=== PATIENT | female | born 1955 | race Caucasian/White ===

== ENCOUNTER 2017-03-24 08:12 | Day surgery (SDC) | payer MEDICARE, OTHER ==
[~2017-03-24 08:12] MED LIST: CEFAZOLIN 2 GM/50 ML (PMX) 50 ML IVPB; LIDOCAINE 2% (SDV) 5 ML INJ; ONDANSETRON 4 MG INJ; SOD CHLORIDE 0.9% 1,000 ML IV
[2017-03-24] MEDS: NIFEdipine 10 MG CAP PO (11:20)
[2017-03-24 11:33] LABS: ADD MAN DIFF? NO
[2017-03-24 11:48] LABS: WHITE BLOOD COUNT 7.8 10^3/ul (4.8-10.8)
[2017-03-24 11:48] LABS: BASOPHIL # 0.1 10^3/ul (0.0-0.1); BASOPHILS % 0.8 % (0.0-2.0); EOSINOPHILS # 0.3 10^3/ul (0.0-0.5); EOSINOPHILS % 4.1 % (0.0-7.0); HEMATOCRIT 36.4 % (37.0-47.0); HEMOGLOBIN 12.8 g/dl (12.0-16.0); LYMPHOCYTES % 25.4 % (15.0-51.0); MEAN CORPUSCULAR HEMOGLOBIN 30.7 pg (29.0-33.0); MEAN CORPUSCULAR HGB CONC 35.2 g/dl (32.0-37.0); MEAN CORPUSCULAR VOLUME 87.3 fl (82.0-101.0); MEAN PLATELET VOLUME 10.7 fl (7.4-10.4); MONOCYTE # 0.5 10^3/ul (0.3-0.9); MONOCYTES % 6.8 % (0.0-11.0); NEUTROPHIL # 4.9 10^3/ul (1.6-7.5); NEUTROPHILS % 62.4 % (39.0-77.0); PLATELET COUNT 273 10^3/UL (140-415); RED BLOOD COUNT 4.17 10^6/ul (4.20-5.40); RED CELL DISTRIBUTION WIDTH 12.9 % (11.5-14.5)
[2017-03-24 11:59] LABS: ALANINE AMINOTRANSFERASE 40 IU/L (13-69); ALBUMIN 4.6 g/dl (3.3-4.9); ALBUMIN/GLOBULIN RATIO 1.21; ALKALINE PHOSPHATASE 125 IU/L (42-121); ANION GAP 17 (8-16); ASPARTATE AMINO TRANSFERASE 33 IU/L (15-46); BILIRUBIN,INDIRECT 0.5 mg/dl (0-1.1); BILIRUBIN,TOTAL 0.5 mg/dl (0.2-1.3); CARBON DIOXIDE 21 mmol/L (21-31); CHLORIDE 111 mmol/L (97-110); GLUCOSE 136 mg/dl (70-220); TOTAL PROTEIN 8.4 g/dl (6.1-8.1)
[2017-03-24 12:06] LABS: BLOOD UREA NITROGEN 11 mg/dl (7-20); CALCIUM 9.4 mg/dl (8.4-10.2); CREATININE 0.69 mg/dl (0.44-1.00); POTASSIUM 3.8 mmol/L (3.5-5.1)
[2017-03-24 12:08] LABS: SODIUM 145 mmol/L (135-144)
[2017-03-24 12:12] LABS: INR 0.93; PROTIME 12.6 Sec (11.9-14.9)
[2017-03-24 12:13] LABS: PARTIAL THROMBOPLASTIN TIME 29.2 Sec (25.0-35.0)
[2017-03-24] MEDS ORDERED: KETOROLAC 30 MG INJ IV (14:00)
[2017-03-24] MEDS ORDERED: MIDAZOLAM 1 MG/ML 2 ML INJ IV (14:00)
[2017-03-24] MEDS ORDERED: HYDROmorphONE (0.2 MG/ML) 10ML SYG IV ×3 (14:00)
[2017-03-24] MEDS ORDERED: DIPHENHYDRAMINE 50 MG INJ IV (14:00)
[2017-03-24] MEDS ORDERED: LABETALOL HCL 20MG INJ IV (14:00)
[2017-03-24] MEDS ORDERED: ALBUTEROL 0.083% (NEB) 2.5 MG/3 ML AMP HHN (14:00)
[2017-03-24] MEDS ORDERED: OXYCODONE/ACETAMINOPHEN (5/325) TAB PO (14:00)
[2017-03-24] MEDS ORDERED: METOCLOPRAMIDE 10 MG INJ IV (14:00)
[2017-03-24] MEDS ORDERED: hydrALAzine 20 MG INJ IV (14:00)
[2017-03-24] MEDS ORDERED: FENTAnyl 50 MCG/ML VIAL IV ×3 (14:00)
[2017-03-24] MEDS ORDERED: EPHEDrine SULFATE 50 MG/5 ML SYG IV (14:00)
[2017-03-24] MEDS ORDERED: FENTAnyl 50 MCG/ML VIAL (14:01)
[2017-03-24] MEDS ORDERED: CEFAZOLIN 1 GM INJ (14:01)
[2017-03-24] MEDS ORDERED: PROPOFOL 100 ML (14:01)
[2017-03-24] MEDS ORDERED: DEXAMETHASONE 4 MG/ML 1 ML INJ (15:00)
[2017-03-24] MEDS ORDERED: HYDROCODONE/APAP (7.5/325) TAB PO ×2 (15:30)
[2017-03-24] MEDS: MEPERIDINE 25 MG INJ IV (15:48)
[2017-03-24] MEDS: ONDANSETRON 4 MG INJ IV (15:48)
[2017-03-24] MEDS: OXYCODONE/ACETAMINOPHEN (5/325) TAB PO (16:42)
== END 2017-03-24 17:30 | disposition home or self-care (01) ==
LOC: SDS 08:12
DX: D05.12 Intraductal carcinoma in situ of left breast (principal); I10 Essential (primary) hypertension
CPT/HCPCS: 19301; 71045; 80053; 85025; 85610; 85730; 88307; 93005

== ENCOUNTER 2017-05-19 10:33 | Day surgery (SDC) | payer MEDICARE, OTHER ==
[2017-05-19] MEDS ORDERED: SOD CHLORIDE 0.9% 1,000 ML IV (12:30)
[2017-05-19] MEDS ORDERED: CEFAZOLIN 2 GM/50 ML (PMX) 50 ML IVPB (12:30)
[2017-05-19] MEDS ORDERED: LIDOCAINE 100 MG SYRINGE (13:16)
[2017-05-19] MEDS ORDERED: FENTAnyl 50 MCG/ML VIAL ×3 (13:16→14:21)
[2017-05-19] MEDS ORDERED: MIDAZOLAM 1 MG/ML 2 ML INJ (13:16)
[2017-05-19] MEDS ORDERED: PROPOFOL 100 ML (13:16)
[2017-05-19] MEDS ORDERED: ONDANSETRON 4 MG INJ (13:27)
[2017-05-19] MEDS ORDERED: DEXAMETHASONE 4 MG/ML 1 ML INJ (13:27)
[2017-05-19] MEDS ORDERED: ACETAMINOPHEN 1000MG/100ML IV 100 ML (13:27)
[2017-05-19] MEDS ORDERED: CEFAZOLIN 1 GM INJ ×2 (13:27→13:34)
[2017-05-19] MEDS ORDERED: GLYCOPYRROLATE 0.4 MG INJ (13:37)
[2017-05-19] MEDS ORDERED: ONDANSETRON 4 MG INJ IV (14:30)
[2017-05-19] MEDS ORDERED: KETOROLAC 30 MG INJ IV (14:30)
[2017-05-19] MEDS ORDERED: FENTAnyl 50 MCG/ML VIAL IV ×2 (14:30)
[2017-05-19] MEDS ORDERED: LABETALOL HCL 20MG INJ IV (14:30)
[2017-05-19] MEDS: FENTAnyl 50 MCG/ML VIAL IV (14:30)
[2017-05-19] MEDS ORDERED: MEPERIDINE 25 MG INJ IV (14:30)
[2017-05-19] MEDS ORDERED: hydrALAzine 20 MG INJ IV (14:30)
[2017-05-19] MEDS: HYDROCODONE/APAP (7.5/325) TAB PO (15:40)
== END 2017-05-19 16:55 | disposition home or self-care (01) ==
LOC: SDS 10:33
DX: D05.12 Intraductal carcinoma in situ of left breast (principal); E11.9 Type 2 diabetes mellitus without complications; I10 Essential (primary) hypertension
CPT/HCPCS: 19301; 71045; 88307; 93005